=== PATIENT | female | born 1995 | race African-American/Black ===

== ENCOUNTER 2017-01-30 15:01 | Inpatient (IN) | payer OTHER ==
[~2017-01-30] VITALS: Ht 154.9 cm; Wt 132.0 kg
[~2017-01-30 15:01] MED LIST: CLARITIN10 M1 PO; CLONIDINE0.1 MG PO; FLONASE NASAL50 MCG; HYDROCHLOR12.5 MG/CA PO; KEFLEX250 MG/5 M OR; MEDDOSEPAK OR; ULTRAM50 M1 PO
[2017-01-30 15:25] VITALS: BP 146/83
[2017-01-30 16:23] LABS: HEMATOCRIT 30.1 % (37.0-47.0); HEMOGLOBIN 9.8 g/dl (12.0-16.0); IMMATURE GRANULOCYTES 0.2 % (0.0-1.0); MEAN CORPUSCULAR HGB 22.5 pG CALC (26.0-32.0); MEAN CORPUSCULAR HGB CONC 32.6 g/L CALC (32.0-36.0); NEUT# 3.81 thou/uL (2.00-7.15); RED BLOOD COUNT 4.36 mill/uL (4.20-5.60); RED CELL DISTRI WIDTH 18.4 % (11.5-15.5)
[2017-01-30 16:31] LABS: ALBUMIN 3.7 g/dL (3.2-5.0); ALKALINE PHOSPHATASE 64 u/l (38-126); AMYLASE 66 u/l (30-110); ANION GAP 13 (6-22 (CALC)); BILIRUBIN, TOTAL 0.8 mg/dL (0.0-1.4); BUN 6 mg/dL (7-17); BUN/CREATININE RATIO 10 (12-20 (CALC)); CALCIUM 9.3 mg/dL (8.4-10.2); CARBON DIOXIDE 23 mmol/l (22-30); CHLORIDE 105 mmol/l (95-108); CREATININE 0.6 mg/dL (0.5-1.0); GFR > 60 ML/MIN (>=60 (CALC)); GFR FOR AFR.AMER. > 60 ML/MIN (>=60 (CALC)); GLUCOSE 75 mg/dL (65-105); LIPASE 120 u/l (23-300); SGOT/AST 29 u/l (14-36); SGPT/ALT 33 u/l (9-52); SODIUM 137 mmol/l (137-146); TOTAL PROTEIN 7.3 g/dL (6.3-8.2)
[2017-01-30 19:11] VITALS: BP 149/93
[2017-01-31 04:40] VITALS: BP 140/88
[2017-01-31 07:41] VITALS: BP 140/72
[2017-01-31] MEDS ORDERED: PRENATA3 PO (09:14)
[2017-01-31 14:16] VITALS: BP 127/72
[2017-01-31 16:30] VITALS: BP 131/85
[2017-01-31 19:53] VITALS: BP 140/84
[2017-02-01 01:36] LABS: BARBITURATES NEGATIVE (NEGATIVE); COCAINE NEGATIVE (NEGATIVE); METHADONE NEGATIVE (NEGATIVE); OXCYCODONE NEGATIVE (NEGATIVE); TETRAHYDROCANNABIONOL NEGATIVE (NEGATIVE); TRICYLIC ANTIDEPRESSANTS NEGATIVE (NEGATIVE)
[2017-02-01 04:35] VITALS: BP 140/84
[2017-02-01] MEDS ORDERED: LABETALOL100 MG PO (07:34)
[2017-02-01] MEDS ORDERED: ZOFRAN ODT4 MG PO (07:36)
[2017-02-01 07:42] VITALS: BP 149/91
[2017-02-01 09:50] VITALS: BP 140/70
== END 2017-02-01 10:45 | disposition home or self-care (01) | DRG 781 ==
LOC: ENPENDDIS → MS2 15:01
PROVIDERS: ADMIT Obstetrics & Gynecology; ATTEND Obstetrics & Gynecology
DX: O11.1 Pre-existing hypertension with pre-eclampsia, first trimester (principal); Z68.43 Body mass index [BMI] 50.0-59.9, adult; O21.0 Mild hyperemesis gravidarum; O99.211 Obesity complicating pregnancy, first trimester; K80.20 Calculus of gallbladder without cholecystitis without obstruction; O99.611 Diseases of the digestive system complicating pregnancy, first trimester; E66.01 Morbid (severe) obesity due to excess calories; Z3A.10 10 weeks gestation of pregnancy

== ENCOUNTER 2017-02-07 17:46 | Emergency (ER) | payer OTHER ==
[~2017-02-07] VITALS: Ht 154.9 cm; Wt 132.0 kg
[~2017-02-07 17:46] MED LIST changes: +LABETALOL100 MG PO; +PRENATA3 PO; +ZOFRAN ODT4 MG PO
[2017-02-07 19:55] LABS: URINE BLOOD DIPSTICK TRACE-INTACT (NEGATIVE); URINE CLARITY SLIGHT CLOUDY; URINE GLUCOSE - DIPSTICK NEGATIVE (NEGATIVE); URINE KETONE 15 mg/dL (NEGATIVE); URINE LEUK ESTERASE NEGATIVE (NEGATIVE); URINE NITRITE - DIPSTICK NEGATIVE (Negative); URINE PROTEIN - DIPSTICK >=300 mg/dL (NEG-TRACE); URINE SPECIFIC GRAVITY >=1.030; URINE UROBILINOGEN - DIPSTICK 0.2 E.U./dL (0.2)
[2017-02-07 20:01] LABS: URINE BILIRUBIN - DIPSTICK NEGATIVE (NEGATIVE); URINE COLOR DK. YELLOW
[2017-02-07 20:03] LABS: HEMATOCRIT 32.4 % (37.0-47.0); HEMOGLOBIN 10.5 g/dl (12.0-16.0); IMMATURE GRANULOCYTES 0.2 % (0.0-1.0); MEAN CELL VOLUME 70.3 fL CALC (80.0-100.0); MEAN CORPUSCULAR HGB 22.8 pG CALC (26.0-32.0); MEAN CORPUSCULAR HGB CONC 32.4 g/L CALC (32.0-36.0); NEUT# 4.22 thou/uL (2.00-7.15); RED BLOOD COUNT 4.61 mill/uL (4.20-5.60); RED CELL DISTRI WIDTH 19.3 % (11.5-15.5)
[2017-02-07 20:04] LABS: URINE AMORPH SEDIMENT MODERATE hpf (NONE-FEW); URINE MUCUS MODERATE hpf (NONE-FEW); URINE RBC 0-2 RBC/hpf (0-5); URINE SQUAMOUS EPITHELIAL CELL FEW EPI/hpf (0-FEW); URINE WBC 0-2 WBC/hpf (0-5)
[2017-02-07 20:20] LABS: ALBUMIN 3.6 g/dL (3.2-5.0); ALKALINE PHOSPHATASE 55 u/l (38-126); AMYLASE 57 u/l (30-110); ANION GAP 14 (6-22 (CALC)); BILIRUBIN, TOTAL 0.9 mg/dL (0.0-1.4); BUN 4 mg/dL (7-17); BUN/CREATININE RATIO 7 (12-20 (CALC)); CALCIUM 9.3 mg/dL (8.4-10.2); CARBON DIOXIDE 23 mmol/l (22-30); CHLORIDE 105 mmol/l (95-108); CREATININE 0.6 mg/dL (0.5-1.0); GFR > 60 ML/MIN (>=60 (CALC)); GFR FOR AFR.AMER. > 60 ML/MIN (>=60 (CALC)); GLUCOSE 76 mg/dL (65-105); LIPASE 92 u/l (23-300); POTASSIUM 4.2 mmol/l (3.5-5.1); SGOT/AST 26 u/l (14-36); SGPT/ALT 31 u/l (9-52); SODIUM 137 mmol/l (137-146); TOTAL PROTEIN 7.1 g/dL (6.3-8.2)
[2017-02-07 20:44] VITALS: BP 168/87
[2017-02-07 21:00] LABS: BETA-HCG, QUANT(RESULT NUMBER) 151630 mIU/mL
== END 2017-02-07 21:45 | disposition home or self-care (01) | DRG 781 ==
LOC: ED 17:46
PROVIDERS: Emergency Medicine
DX: O21.0 Mild hyperemesis gravidarum (principal); Z3A.12 12 weeks gestation of pregnancy

== ENCOUNTER 2017-02-26 13:10 | Inpatient (IN) | payer OTHER ==
[~2017-02-26] VITALS: Ht 154.9 cm; Wt 133.2 kg
[2017-02-26 14:02] LABS: URINE BILIRUBIN - DIPSTICK NEGATIVE (NEGATIVE); URINE BLOOD DIPSTICK SMALL (NEGATIVE); URINE CLARITY SLIGHT CLOUDY; URINE COLOR YELLOW; URINE EPITHELIAL CELLS MODERATE EPI/hpf (0-FEW); URINE GLUCOSE - DIPSTICK NEGATIVE (NEGATIVE); URINE KETONE NEGATIVE (NEGATIVE); URINE LEUK ESTERASE NEGATIVE (NEGATIVE); URINE NITRITE - DIPSTICK NEGATIVE (Negative); URINE PROTEIN - DIPSTICK 100 mg/dL (NEG-TRACE); URINE RBC 0-2 RBC/hpf (0-5); URINE SPECIFIC GRAVITY 1.015; URINE UROBILINOGEN - DIPSTICK 0.2 E.U./dL (0.2)
[2017-02-26 14:03] LABS: HEMATOCRIT 27.1 % (37.0-47.0); IMMATURE GRANULOCYTES 0.2 % (0.0-1.0); MEAN CELL VOLUME 69.1 fL CALC (80.0-100.0); MEAN CORPUSCULAR HGB CONC 33.2 g/L CALC (32.0-36.0); NEUT# 3.17 thou/uL (2.00-7.15); RED BLOOD COUNT 3.92 mill/uL (4.20-5.60); RED CELL DISTRI WIDTH 18.3 % (11.5-15.5)
[2017-02-26 14:17] LABS: ALBUMIN 3.1 g/dL (3.2-5.0); ALKALINE PHOSPHATASE 49 u/l (38-126); ANION GAP 12 (6-22 (CALC)); BILIRUBIN, TOTAL 0.4 mg/dL (0.0-1.4); BUN 3 mg/dL (7-17); BUN/CREATININE RATIO 6 (12-20 (CALC)); CALCIUM 8.7 mg/dL (8.4-10.2); CARBON DIOXIDE 21 mmol/l (22-30); CHLORIDE 107 mmol/l (95-108); CREATININE 0.5 mg/dL (0.5-1.0); GFR > 60 ML/MIN (>=60 (CALC)); GFR FOR AFR.AMER. > 60 ML/MIN (>=60 (CALC)); GLUCOSE 84 mg/dL (65-105); POTASSIUM 3.6 mmol/l (3.5-5.1); SGOT/AST 19 u/l (14-36); SGPT/ALT 21 u/l (9-52); SODIUM 137 mmol/l (137-146); TOTAL PROTEIN 6.1 g/dL (6.3-8.2)
[2017-02-26 15:00] LABS: BETA-HCG, QUANT(RESULT NUMBER) 52653 mIU/mL
[2017-02-26 17:15] VITALS: BP 140/64
[2017-02-26 18:38] LABS: COCAINE NEGATIVE (NEGATIVE); METHADONE NEGATIVE (NEGATIVE); TETRAHYDROCANNABIONOL NEGATIVE (NEGATIVE)
[2017-02-26 18:39] LABS: BARBITURATES NEGATIVE (NEGATIVE); OXCYCODONE NEGATIVE (NEGATIVE); TRICYLIC ANTIDEPRESSANTS NEGATIVE (NEGATIVE)
[2017-02-26 20:10] VITALS: BP 135/51
[2017-02-26 21:05] VITALS: BP 131/55
[2017-02-26 22:06] VITALS: BP 140/62
[2017-02-26 23:08] VITALS: BP 138/62
[2017-02-27] VITALS (15 sets, daily range): BP systolic 103–157; BP diastolic 51–99
[2017-02-27 17:58] LABS: HEMATOCRIT 23.9 % (37.0-47.0)
[2017-02-27] MEDS ORDERED: LORTAB 7.5-3251 TAB PO (18:00)
== END 2017-02-27 18:30 | disposition home or self-care (01) | DRG 767 ==
LOC: ED 13:10 → ED-I 15:40 → ED 15:53 → OB 15:54
PROVIDERS: Emergency Medicine; ADMIT Obstetrics & Gynecology; ATTEND Obstetrics & Gynecology
PROC: 10E0XZZ Delivery of Products of Conception, External Approach (ICD-10-PCS; principal; 2017-02-27)
PROC: 10D17ZZ Extraction of Products of Conception, Retained, Via Natural or Artificial Opening (ICD-10-PCS; 2017-02-27)
DX: O42.912 Preterm premature rupture of membranes, unspecified as to length of time between rupture and onset of labor, second trimester (principal); O16.2 Unspecified maternal hypertension, second trimester; Z68.43 Body mass index [BMI] 50.0-59.9, adult; Z37.1 Single stillbirth; O73.0 Retained placenta without hemorrhage; O99.214 Obesity complicating childbirth; E66.9 Obesity, unspecified; Z3A.15 15 weeks gestation of pregnancy

== ENCOUNTER 2017-06-20 09:49 | Emergency (ER) | payer OTHER ==
[~2017-06-20] VITALS: Ht 154.9 cm; Wt 135.0 kg
[~2017-06-20 09:49] MED LIST changes: +LORTAB 7.5-3251 TAB PO
[2017-06-20] MEDS ORDERED: MUCINEX D1 TAB PO (11:04)
[2017-06-20 11:15] VITALS: BP 153/96
== END 2017-06-20 11:15 | disposition home or self-care (01) | DRG 866 ==
LOC: ED 09:49
DX: B34.9 Viral infection, unspecified (principal); R05 Cough; R11.2 Nausea with vomiting, unspecified

== ENCOUNTER 2017-07-03 22:27 | Emergency (ER) | payer OTHER ==
[~2017-07-03] VITALS: Ht 154.9 cm; Wt 135.3 kg
[~2017-07-03 22:27] MED LIST changes: +MUCINEX D1 TAB PO
[2017-07-03] MEDS ORDERED: GENTAMICIN0.3 % OS (22:50)
[2017-07-03 23:07] VITALS: BP 146/90
== END 2017-07-03 23:07 | disposition home or self-care (01) | DRG 125 ==
LOC: ED 22:27
DX: H10.9 Unspecified conjunctivitis (principal)

== ENCOUNTER 2017-09-01 20:18 | Emergency (ER) | payer OTHER ==
[~2017-09-01] VITALS: Ht 154.9 cm; Wt 151.0 kg
[~2017-09-01 20:18] MED LIST changes: +GENTAMICIN0.3 % OS
[2017-09-01] MEDS ORDERED: AMOXICILLIN500 MG PO (21:16)
[2017-09-01 21:25] VITALS: BP 149/81
== END 2017-09-01 21:25 | disposition home or self-care (01) | DRG 605 ==
LOC: ED 20:18
DX: S91.115A Laceration without foreign body of left lesser toe(s) without damage to nail, initial encounter (principal); S90.32XA Contusion of left foot, initial encounter; I10 Essential (primary) hypertension; W22.09XA Striking against other stationary object, initial encounter; Y92.59 Other trade areas as the place of occurrence of the external cause

== ENCOUNTER 2017-09-19 13:12 | Emergency (ER) | payer OTHER ==
[~2017-09-19] VITALS: Ht 154.9 cm; Wt 132.2 kg
[~2017-09-19 13:12] MED LIST changes: +AMOXICILLIN500 MG PO
[2017-09-19 13:32] VITALS: BP 149/80
[2017-09-19] MEDS ORDERED: PREDNISONE50 MG PO (13:32)
[2017-09-19] MEDS ORDERED: TESSALON PER100 MG PO (13:32)
[2017-09-19] MEDS ORDERED: ZITHROMAX250 MG PO (13:32)
[2017-09-19] MEDS ORDERED: AFRIN 12 HOUR0.05 % (13:32)
== END 2017-09-19 13:40 | disposition home or self-care (01) | DRG 203 ==
LOC: ED 13:12
DX: J40 Bronchitis, not specified as acute or chronic (principal); R05 Cough; R09.81 Nasal congestion; R09.89 Other specified symptoms and signs involving the circulatory and respiratory systems; R06.2 Wheezing

== ENCOUNTER 2017-11-03 12:15 | Emergency (ER) | payer SELFPAY ==
[~2017-11-03] VITALS: Ht 154.9 cm; Wt 103.4 kg
[~2017-11-03 12:15] MED LIST changes: +AFRIN 12 HOUR0.05 %; +PREDNISONE50 MG PO; +TESSALON PER100 MG PO; +ZITHROMAX250 MG PO
[2017-11-03 13:30] LABS: INFLUENZA A NONE DETECTED (NONE DETECT); INFLUENZA B NONE DETECTED (NONE DETECT)
[2017-11-03 13:45] VITALS: BP 154/85
== END 2017-11-03 13:45 | disposition home or self-care (01) | DRG 153 ==
LOC: ED 12:15
PROVIDERS: Family Medicine
DX: J06.9 Acute upper respiratory infection, unspecified (principal); R05 Cough; R51 Headache; R50.9 Fever, unspecified

== ENCOUNTER 2018-10-24 15:59 | Emergency (ER) | payer SELFPAY ==
[~2018-10-24] VITALS: Ht 154.9 cm; Wt 146.0 kg
[2018-10-24 18:48] LABS: HEMATOCRIT 29.1 % (37.0-47.0); HEMOGLOBIN 9.3 g/dl (12.0-16.0); IMMATURE GRANULOCYTES 0.3 % (0.0-5.0); MEAN CELL VOLUME 68.3 fL CALC (80.0-100.0); MEAN CORPUSCULAR HGB 21.8 pG CALC (26.0-32.0); NEUT# 3.16 thou/uL (2.00-7.15); RED BLOOD COUNT 4.26 mill/uL (4.20-5.60); RED CELL DISTRI WIDTH 18.1 % (11.5-15.5)
[2018-10-24] MEDS ORDERED: DOXYCYCL HYC100 MG PO (19:46)
[2018-10-24 20:01] VITALS: BP 152/70
== END 2018-10-24 20:01 | disposition home or self-care (01) | DRG 195 ==
LOC: ED 15:59
PROVIDERS: Family Medicine
DX: J18.9 Pneumonia, unspecified organism (principal); R50.9 Fever, unspecified; R09.81 Nasal congestion; R05 Cough; J34.89 Other specified disorders of nose and nasal sinuses

== ENCOUNTER 2019-03-12 19:52 | Emergency (ER) | payer OTHER ==
[~2019-03-12] VITALS: Ht 154.9 cm; Wt 141.0 kg
[~2019-03-12 19:52] MED LIST changes: +DOXYCYCL HYC100 MG PO
[2019-03-12 20:45] LABS: HEMATOCRIT 26.9 % (37.0-47.0); HEMOGLOBIN 8.4 g/dl (12.0-16.0); IMMATURE GRANULOCYTES 0.2 % (0.0-5.0); MEAN CELL VOLUME 67.4 fL CALC (80.0-100.0); MEAN CORPUSCULAR HGB 21.1 pG CALC (26.0-32.0); MEAN CORPUSCULAR HGB CONC 31.2 g/L CALC (32.0-36.0); NEUT# 3.59 thou/uL (2.00-7.15); RED BLOOD COUNT 3.99 mill/uL (4.20-5.60); RED CELL DISTRI WIDTH 17.5 % (11.5-15.5)
[2019-03-12 20:47] LABS: URINE BILIRUBIN - DIPSTICK NEGATIVE (NEGATIVE); URINE BLOOD DIPSTICK LARGE (NEGATIVE); URINE COLOR RED; URINE GLUCOSE - DIPSTICK NEGATIVE (NEGATIVE); URINE KETONE TRACE mg/dL (NEGATIVE); URINE LEUK ESTERASE TRACE (NEGATIVE); URINE PROTEIN - DIPSTICK >=300 mg/dL (NEG-TRACE); URINE SPECIFIC GRAVITY 1.025
[2019-03-12 20:48] LABS: URINE NITRITE - DIPSTICK POSITIVE (Negative)
[2019-03-12 20:54] LABS: URINE RBC TNTC RBC/hpf (0-5); URINE SQUAMOUS EPITHELIAL CELL FEW EPI/hpf (0-FEW)
[2019-03-12 20:59] LABS: ALBUMIN 3.9 g/dL (3.2-5.0); ALKALINE PHOSPHATASE 71 u/l (38-126); ANION GAP 13 (6-22 (CALC)); BILIRUBIN, TOTAL 0.5 mg/dL (0.0-1.4); BUN 5 mg/dL (7-17); BUN/CREATININE RATIO 8 (12-20 (CALC)); CARBON DIOXIDE 24 mmol/l (22-30); CHLORIDE 105 mmol/l (95-108); CREATININE 0.6 mg/dL (0.5-1.0); GFR > 60 ML/MIN (>=60 (CALC)); GFR FOR AFR.AMER. > 60 ML/MIN (>=60 (CALC)); POTASSIUM 3.3 mmol/l (3.5-5.1); SGOT/AST 28 u/l (14-36); SODIUM 139 mmol/l (137-146)
[2019-03-12] MEDS ORDERED: ORTHO TRI-CYCLEN LO PO (21:34)
[2019-03-12] MEDS ORDERED: FERROUS SULF325 M3 PO (21:35)
[2019-03-12 21:41] VITALS: BP 159/91
== END 2019-03-12 21:41 | disposition home or self-care (01) | DRG 761 ==
LOC: ED 19:52
PROVIDERS: Family Medicine
DX: N93.8 Other specified abnormal uterine and vaginal bleeding (principal); D64.89 Other specified anemias
CPT/HCPCS: J1410

== ENCOUNTER 2019-03-16 16:05 | Emergency (ER) | payer OTHER ==
[~2019-03-16] VITALS: Ht 154.9 cm; Wt 177.0 kg
[~2019-03-16 16:05] MED LIST changes: +FERROUS SULF325 M3 PO; +ORTHO TRI-CYCLEN LO PO
[2019-03-16] MEDS ORDERED: EPIPEN 2-P0.3 MG/0.3 IM (17:14)
[2019-03-16] MEDS ORDERED: PREDNISONE50 MG PO (17:14)
[2019-03-16 18:37] VITALS: BP 158/87
== END 2019-03-16 18:38 | disposition home or self-care (01) | DRG 916 ==
LOC: ED 16:05
DX: T78.40XA Allergy, unspecified, initial encounter (principal); X58.XXXA Exposure to other specified factors, initial encounter

== ENCOUNTER 2019-09-08 15:24 | Emergency (ER) | payer SELFPAY ==
[~2019-09-08] VITALS: Ht 154.9 cm; Wt 135.9 kg
[~2019-09-08 15:24] MED LIST changes: +EPIPEN 2-P0.3 MG/0.3 IM
[2019-09-08] MEDS ORDERED: TAM75CAP PO (16:39)
[2019-09-08] MEDS ORDERED: ONDANSETRON4 MG PO (16:39)
[2019-09-08 16:45] VITALS: BP 148/90
== END 2019-09-08 16:45 | disposition home or self-care (01) | DRG 153 ==
LOC: ED 15:24
DX: J11.1 Influenza due to unidentified influenza virus with other respiratory manifestations (principal); I10 Essential (primary) hypertension

== ENCOUNTER 2020-07-17 16:55 | Emergency (ER) | payer BC ==
[~2020-07-17] VITALS: Ht 154.9 cm; Wt 136.4 kg
[~2020-07-17 16:55] MED LIST changes: +ONDANSETRON4 MG PO; +TAM75CAP PO
[2020-07-17] MEDS ORDERED: OFLOXACIN0.3 % OD (17:27)
[2020-07-17 17:35] LABS: HEMATOCRIT 28.4 % (37.0-47.0); HEMOGLOBIN 8.5 g/dl (12.0-16.0); IMMATURE GRANULOCYTES 0.2 % (0.0-5.0); MEAN CELL VOLUME 64.8 fL CALC (80.0-100.0); MEAN CORPUSCULAR HGB 19.4 pG CALC (26.0-32.0); MEAN CORPUSCULAR HGB CONC 29.9 g/dL CAL (32.0-36.0); NEUT# 3.28 thou/uL (2.00-7.15); RED BLOOD COUNT 4.38 mill/uL (4.20-5.60); RED CELL DISTRI WIDTH 18.4 % (11.5-15.5)
[2020-07-17 17:50] LABS: ANION GAP 9 (6-22 (CALC)); BUN 8 mg/dL (7-17); BUN/CREATININE RATIO 10 (12-20 (CALC)); CARBON DIOXIDE 24 mmol/l (22-30); CHLORIDE 108 mmol/l (95-108); CREATININE 0.8 mg/dL (0.5-1.0); GFR > 60 ML/MIN (>=60 (CALC)); GFR FOR AFR.AMER. > 60 ML/MIN (>=60 (CALC)); POTASSIUM 3.9 mmol/l (3.5-5.1); SODIUM 137 mmol/l (137-146)
[2020-07-17 18:23] VITALS: BP 151/94
[2020-07-17] MEDS ORDERED: NORVASC5 M1 PO (18:24)
== END 2020-07-17 18:33 | disposition home or self-care (01) | DRG 125 ==
LOC: ED 16:55
PROVIDERS: Family Medicine
DX: S05.01XA Injury of conjunctiva and corneal abrasion without foreign body, right eye, initial encounter (principal); I10 Essential (primary) hypertension; T46.5X6A Underdosing of other antihypertensive drugs, initial encounter; X58.XXXA Exposure to other specified factors, initial encounter; Z91.128 Patient's intentional underdosing of medication regimen for other reason

== ENCOUNTER 2021-04-16 17:42 | Emergency (ER) | payer BC ==
[~2021-04-16] VITALS: Ht 154.9 cm; Wt 141.0 kg
[~2021-04-16 17:42] MED LIST changes: +NORVASC5 M1 PO; +OFLOXACIN0.3 % OD
[2021-04-16] MEDS ORDERED: METOPROL TAR25 MG PO (18:03)
[2021-04-16 19:13] LABS: URINE BILIRUBIN - DIPSTICK NEGATIVE (NEGATIVE); URINE BLOOD DIPSTICK SMALL (NEGATIVE); URINE COLOR YELLOW; URINE GLUCOSE - DIPSTICK NEGATIVE (NEGATIVE); URINE KETONE NEGATIVE (NEGATIVE); URINE LEUK ESTERASE NEGATIVE (NEGATIVE); URINE PROTEIN - DIPSTICK >=300 mg/dL (NEG-TRACE); URINE SPECIFIC GRAVITY >=1.030; URINE UROBILINOGEN - DIPSTICK 0.2 E.U./dL (0.2)
[2021-04-16 19:14] LABS: URINE NITRITE - DIPSTICK NEGATIVE (Negative)
[2021-04-16 19:22] LABS: URINE SQUAMOUS EPITHELIAL CELL MANY EPI/hpf (0-FEW)
[2021-04-16 19:27] LABS: ALKALINE PHOSPHATASE 80 u/l (38-126); AMYLASE 67 u/l (30-110); ANION GAP 14 (6-22 (CALC)); BUN 7 mg/dL (7-17); BUN/CREATININE RATIO 11 (12-20 (CALC)); CARBON DIOXIDE 24 mmol/l (22-30); CHLORIDE 98 mmol/l (95-108); CREATININE 0.6 mg/dL (0.5-1.0); GFR > 60 ML/MIN (>=60 (CALC)); GFR FOR AFR.AMER. > 60 ML/MIN (>=60 (CALC)); HEMATOCRIT 26.4 % (37.0-47.0); IMMATURE GRANULOCYTES 0.1 % (0.0-5.0); LIPASE 69 u/l (23-300); MEAN CORPUSCULAR HGB 19.1 pG CALC (26.0-32.0); MEAN CORPUSCULAR HGB CONC 30.3 g/dL CAL (32.0-36.0); NEUT# 6.82 thou/uL (2.00-7.15); POTASSIUM 3.7 mmol/l (3.5-5.1); RED BLOOD COUNT 4.19 mill/uL (4.20-5.60); RED CELL DISTRI WIDTH 18.1 % (11.5-15.5); SGOT/AST 40 u/l (14-36); SODIUM 133 mmol/l (137-146)
[2021-04-16 19:32] LABS: BILIRUBIN, TOTAL 0.9 mg/dL (0.0-1.4)
[2021-04-16] MEDS ORDERED: IBUPROFEN600 MG PO (22:16)
[2021-04-16 22:25] VITALS: BP 155/80
== END 2021-04-16 23:10 | disposition home or self-care (01) | DRG 694 ==
LOC: ED 17:42
PROVIDERS: Emergency Medicine
DX: N20.1 Calculus of ureter (principal); D64.9 Anemia, unspecified; I10 Essential (primary) hypertension
CPT/HCPCS: Q9967

== ENCOUNTER 2021-06-10 16:50 | Emergency (ER) | payer BC ==
[~2021-06-10] VITALS: Ht 154.9 cm; Wt 140.0 kg
[~2021-06-10 16:50] MED LIST changes: +IBUPROFEN600 MG PO; +METOPROL TAR25 MG PO
[2021-06-10 18:46] LABS: HEMATOCRIT 26.5 % (37.0-47.0); HEMOGLOBIN 7.9 g/dl (12.0-16.0); IMMATURE GRANULOCYTES 0.4 % (0.0-5.0); MEAN CORPUSCULAR HGB 19.1 pG CALC (26.0-32.0); MEAN CORPUSCULAR HGB CONC 29.8 g/dL CAL (32.0-36.0); NEUT# 4.31 thou/uL (2.00-7.15); RED BLOOD COUNT 4.14 mill/uL (4.20-5.60); RED CELL DISTRI WIDTH 18.7 % (11.5-15.5)
[2021-06-10 18:57] LABS: D-DIMER 0.44 mg/L (0.19-0.60)
[2021-06-10 18:58] LABS: PROTHROMBIN TIME 10.5 SECONDS (9.0-12.5)
[2021-06-10 19:40] LABS: ALBUMIN 3.6 g/dL (3.2-5.0); ALKALINE PHOSPHATASE 64 u/l (38-126); ANION GAP 9 (6-22 (CALC)); BUN 11 mg/dL (7-17); BUN/CREATININE RATIO 14 (12-20 (CALC)); CARBON DIOXIDE 26 mmol/l (22-30); CHLORIDE 102 mmol/l (95-108); CREATININE 0.8 mg/dL (0.5-1.0); GFR > 60 ML/MIN (>=60 (CALC)); GFR FOR AFR.AMER. > 60 ML/MIN (>=60 (CALC)); LIPASE 496 u/l (23-300); POTASSIUM 3.6 mmol/l (3.5-5.1); SGOT/AST 28 u/l (14-36); SODIUM 134 mmol/l (137-146); TOTAL PROTEIN 7.1 g/dL (6.3-8.2)
[2021-06-10 19:43] LABS: BILIRUBIN, TOTAL 0.4 mg/dL (0.0-1.4)
[2021-06-10] MEDS ORDERED: PREVACID30 M3 PO (22:56)
[2021-06-10] MEDS ORDERED: NAPROXEN500 MG PO (22:56)
[2021-06-10 23:15] VITALS: BP 160/72
== END 2021-06-10 23:17 | disposition home or self-care (01) | DRG 446 ==
LOC: ED 16:50
PROVIDERS: Physician Assistant Surgical
DX: K80.20 Calculus of gallbladder without cholecystitis without obstruction (principal); I10 Essential (primary) hypertension
CPT/HCPCS: Q9967; S0164